=== PATIENT | male | born 1955 ===

== ENCOUNTER 2018-10-28 13:01 | Observation (INO) | payer OTHER, SELFPAY ==
[2018-10-28 13:01] VITALS: BMI 30.9
[2018-10-28] MEDS ORDERED: Sodium Chloride 0.9% 1,000 ML IV STA (14:12)
--- NOTE | 2018-10-28 14:20 | ED PDOC ---
HPI: Abdomen Time Seen by Provider: 10/28/18 13:47 Chief Complaint (Nursing): GI Problem Chief Complaint (Provider): Abdominal pain History Per: Patient History/Exam Limitations: no limitations Onset/Duration Of Symptoms: Days Outside of [place] travel?: No Location Of Pain/Discomfort: Diffuse, RUQ, RLQ Quality Of Discomfort: "Pain" Additional History Per: Patient Additional Complaint(s): 63yo male, comes to ER reporting abdominal pain, with associated nausea, vomiting and diarrhea. He denies any associated fever or chills. Patient states vomiting and diarrhea are both non-bloody. No medications taken prior. No additional complaints. PMD: Dr. Lanier Past Medical History Reviewed: Historical Data, Nursing Documentation, Vital Signs Vital Signs: Last Vital Signs Temp 100.3 F H 10/28/18 13:15 Pulse 130 H 10/28/18 13:15 Resp 18 10/28/18 13:15 BP 139/86 10/28/18 13:15 Pulse Ox 94 L 10/28/18 13:15 Primary Care Provider: Alexis Lanier - Medical History PMH: HTN - Surgical History Surgical History: No Surg Hx - Family History Family History: States: No Known Family Hx - Home Medications Home Medications: Ambulatory Orders Medication Instructions Recorded Aspirin 325 mg PO DAILY #0 tab 09/30/14 Clopidogrel [Plavix] 75 mg PO DAILY #0 tab 09/30/14 Glimepiride [amaRYL] 4 mg PO BID 10/28/18 Metoprolol Succinate XL [Toprol XL] 50 mg PO DAILY 10/28/18 - Allergies Allergies/Adverse Reactions: Allergies Allergy/AdvReac Type Severity Reaction Status Date / Time No Known Allergies Allergy Verified 10/28/18 13:15 Review of Systems ROS Statement: Except As Marked, All Systems Reviewed And Found Negative Constitutional: Negative for: Fever Cardiovascular: Negative for: Chest Pain Respiratory: Negative for: Shortness of Breath Gastrointestinal: Positive for: Nausea, Vomiting, Abdominal Pain, Diarrhea Physical Exam - Reviewed Nursing Documentation Reviewed: Yes Vital Signs Reviewed: Yes (febrile) - Physical Exam Appears: Positive for: Non-toxic, No Acute Distress Head Exam: Positive for: ATRAUMATIC, NORMAL INSPECTION, NORMOCEPHALIC Skin: Positive for: Normal Color Eye Exam: Positive for: Normal appearance Neck: Positive for: Supple Cardiovascular/Chest: Positive for: Tachycardia Respiratory: Positive for: Normal Breath Sounds. Negative for: Respiratory Distress Gastrointestinal/Abdominal: Positive for: Soft, Tenderness (right upper and lower quadrant tenderness). Negative for: Guarding Back: Positive for: Normal Inspection Extremity: Positive for: Normal ROM. Negative for: Pedal Edema Neurological/Psych: Positive for: Awake, Alert - Laboratory Results Result Diagrams: 10/29/18 05:45 10/29/18 14:35 - ECG O2 Sat by Pulse Oximetry: 94 (RA) Medical Decision Making Medical Decision Making: Impression: Abdominal pain w/ vomiting and diarrhea since yesterday Plan: -- Labs -- Urinalysis -- CT Abdomen/Pelvis -- EKg -- IV Fluids -- Zofran 4mg IV -- Morphine 2mg IV 1500 Labs reviewed, elevated creatinine, hypokalemia Patient given potassium chloride 20meq CT order changed to w/o contrast 1604 CT Abdomen/Pelvis FINDINGS: LOWER THORAX: Unremarkable. LIVER: Hepatomegaly. Liver measures 22.4 cm craniocaudal. The liver is diffusely diminished in attenuation consistent with fatty infiltration. Smooth contour. No mass. No biliary ductal dilatation. GALLBLADDER AND BILE DUCTS: Unremarkable. PANCREAS: Unremarkable. No gross lesion or ductal dilatation. SPLEEN: Unremarkable. ADRENALS: Unremarkable. No mass. KIDNEYS AND URETERS: Multiple bilateral rounded renal masses. In comparison to the prior examination of 03/30/2011, there has been interval increase in size of several of these masses. Although these likely represent cysts, correlation with nonemergent renal ultrasound examination is suggested. There is an exophytic mass in the upper pole of the right kidney with minimal peripheral calcification, measuring 36 Hounsfield units. This measures 1.8 cm in diameter, unchanged from prior examination. However, given the interval increase in attenuation and the appearance of peripheral calcification, again, correlation with renal ultrasound examination is suggested. No renal calculus. No hydronephrosis. VASCULATURE: Unremarkable. No aortic aneurysm. There is atherosclerotic calcification of the abdominal aorta. BOWEL: There is mural thickening of the cecum, ascending colon and hepatic flexure of the colon consistent with nonspecific colitis. There is no bowel obstruction. There are no other abnormal bowel loops identified. APPENDIX: Unremarkable. Normal appendix. PERITONEUM: Unremarkable. No free fluid. No free air. LYMPH NODES: Unremarkable. No enlarged lymph nodes. BLADDER: Nondistended REPRODUCTIVE: Normal prostate BONES: No acute fracture. OTHER FINDINGS: None. IMPRESSION: Nonspecific colitis involving the right colon, from cecum to hepatic flexure. Possible infectious or inflammatory etiology. No bowel obstruction. Bilateral low-density renal masses. Some of these have increased mildly in size compared to examination of 2011. Therefore, correlation with nonemergent renal u ltrasound examination is suggested. See above discussion. Hepatomegaly with diffuse fatty infiltration of the liver. IV Antibiotics started 1610 Patient meets sepsis criteria due to tachycardia, fever, and colitis. Discussed case with Dr. Bunch, who accepts patient for admission. --- ScribeAttestation: Documented byVirginia Benjamin, acting as a scribe for Traci Smart MD. Provider ScribeAttestation: All medical record entries made by the Scribe were at my direction and personally dictated by me. I have reviewed the chart and agree that the record accurately reflects my personal performance of the history, physical exam, medical decision making, and the department course for this patient. I have also personally directed, reviewed, and agree with the discharge instructions and disposition. Disposition - Clinical Impression Clinical Impression: Colitis, Sepsis - Patient ED Disposition Is Patient to be Admitted: Yes - Disposition Disposition Time: 16:00 Condition: STABLE - Pt Status Changed To: Hospital Disposition Of: Inpatient - Admit Certification Admit to Inpatient:: After my assessment, the patient will require hospitalization for at least two midnights. This is because of the severity of symptoms shown, intensity of services needed, and/or the medical risk in this patient being treated as an outpatient. - POA Present On Arrival: Poor Glycemic Control
[2018-10-28 14:42] LABS: BASO % 0.4 % (0.0-2.0); HEMOGLOBIN 18.1 g/dL (12.0-18.0); LYMPH # 0.8 K/uL (1.0-4.3); MEAN CELL VOLUME 85.2 fl (80.0-94.0); MEAN CORPUSCULAR HEMOGLOBIN 29.4 pg (27.0-31.0); MEAN CORPUSCULAR HGB CONC 34.5 g/dL (33.0-37.0); MEAN PLATELET VOLUME 9.2 fl (7.2-11.7); MONO # 0.6 K/uL (0.0-0.8); MONO % 7.2 % (0.0-10.0); NEUT % 83.4 % (50.0-75.0); NRBC % 0.4 % (0.0-0.0); PLATELET COUNT 212 K/uL (130-400); RBC 6.16 Mil/uL (4.40-5.90); RED CELL DISTRIBUTION WIDTH 13.8 % (11.5-14.5); WHITE BLOOD COUNT 8.4 K/uL (4.8-10.8)
[2018-10-28 14:45] LABS: VENOUS BLOOD GAS BASE EXCESS -0.7 mmol/L (0.0-2.0); VENOUS BLOOD GAS PCO2 48 mmHg (40-60); VENOUS BLOOD GAS PO2 23 mm/Hg (30-55); VENOUS BLOOD PH 7.34 (7.32-7.43)
[2018-10-28 14:50] LABS: INR 1.1; SQUAMOUS EPITHIAL 3 /hpf (0-5); URINE BACTERIA RARE (<OCC); URINE BILIRUBIN NEGATIVE (NEGATIVE); URINE BLOOD SMALL (NEGATIVE); URINE CLARITY CLOUDY (Clear); URINE COLOR AMBER (YELLOW); URINE GLUCOSE (UA) NEG (NEGATIVE); URINE LEUKOCYTE ESTERASE NEG Leu/uL (Negative); URINE PROTEIN >=500 mg/dL (NEGATIVE); URINE UROBILINOGEN 0.2-1.0 mg/dL (0.2-1.0)
[2018-10-28 14:52] LABS: ALBUMIN 4.7 g/dL (3.5-5.0); CALCIUM 9.3 mg/dL (8.4-10.2); PARTIAL THROMBOPLASTIN TIME 31.9 Seconds (25.6-37.1)
[2018-10-28] MEDS ORDERED: Potassium Chloride 20 mEq ER Tab PO STA (15:01)
[2018-10-28] MEDS ORDERED: Potassium Chloride 20 mEq ER Tab PO ONE (15:17)
[2018-10-28 15:25] LABS: BANDS 8 % (0-2); LYMPHOCYTE 7 % (20-50); MONOCYTE 10 % (0-10); NEUTROPHIL 74 % (42-75); PLATELET ESTIMATE NORMAL (NORMAL); REACTIVE LYMPHOCYTES 1 % (0-0); TOTAL CELLS COUNTED 100
--- NOTE | 2018-10-28 15:52 | CT ---
Date of service: 10/28/2018 PROCEDURE: CT Abdomen and Pelvis without intravenous contrast HISTORY: R sided pain COMPARISON: 03/30/2011 TECHNIQUE: Without contrast.. Contrast dose: 0 Radiation dose: Total exam DLP = 495.63 mGy-cm. This CT exam was performed using one or more of the following dose reduction techniques: Automated exposure control, adjustment of the mA and/or kV according to patient size, and/or use of iterative reconstruction technique. FINDINGS: LOWER THORAX: Unremarkable. LIVER: Hepatomegaly. Liver measures 22.4 cm craniocaudal. The liver is diffusely diminished in attenuation consistent with fatty infiltration. Smooth contour. No mass. No biliary ductal dilatation. GALLBLADDER AND BILE DUCTS: Unremarkable. PANCREAS: Unremarkable. No gross lesion or ductal dilatation. SPLEEN: Unremarkable. ADRENALS: Unremarkable. No mass. KIDNEYS AND URETERS: Multiple bilateral rounded renal masses. In comparison to the prior examination of 03/30/2011, there has been interval increase in size of several of these masses. Although these likely represent cysts, correlation with nonemergent renal ultrasound examination is suggested. There is an exophytic mass in the upper pole of the right kidney with minimal peripheral calcification, measuring 36 Hounsfield units. This measures 1.8 cm in diameter, unchanged from prior examination. However, given the interval increase in attenuation and the appearance of peripheral calcification, again, correlation with renal ultrasound examination is suggested. No renal calculus. No hydronephrosis. VASCULATURE: Unremarkable. No aortic aneurysm. There is atherosclerotic calcification of the abdominal aorta. BOWEL: There is mural thickening of the cecum, ascending colon and hepatic flexure of the colon consistent with nonspecific colitis. There is no bowel obstruction. There are no other abnormal bowel loops identified. APPENDIX: Unremarkable. Normal appendix. PERITONEUM: Unremarkable. No free fluid. No free air. LYMPH NODES: Unremarkable. No enlarged lymph nodes. BLADDER: Nondistended REPRODUCTIVE: Normal prostate BONES: No acute fracture. OTHER FINDINGS: None. IMPRESSION: Nonspecific colitis involving the right colon, from cecum to hepatic flexure. Possible infectious or inflammatory etiology. No bowel obstruction. Bilateral low-density renal masses. Some of these have increased mildly in size compared to examination of 2010. Therefore, correlation with nonemergent renal ultrasound examination is suggested. See above discussion. Hepatomegaly with diffuse fatty infiltration of the liver.
[2018-10-28] MEDS ORDERED: metroNIDAZOLE 500mg/100ml NS 100 ML IV STA (16:05)
[2018-10-28] MEDS ORDERED: cefTRIAXone (Rocephin) 1 gm Inj ONE (16:18)
[2018-10-28] MEDS ORDERED: Glucagon Recombinant 1 mg Inj IM PRN (16:58)
[2018-10-28] MEDS ORDERED: Dextrose 50% SYRINGE Inj (50 ml) IV PRN (16:58)
--- NOTE | 2018-10-28 16:59 | CP.PCM.HP ---
History of Present Illness - History of Present Illness History of Present Illness: 63 yo male with history of HTN, DM and HLD presented to ED for evaluation of right upper abdominal pain. Pain started yesterday associated with 8 episodes of Non-blood, non-bilious vomiting and watery diarrhea (without blood). He states the last time he ate was yesterday morning and it was tamales with unpasteurized cream. He states that he noticed this right upper quadrant pain last night while working and states it worsened which caused him to come to the E.R. He reports decreased PO intake since yesterday morning (has been having sips of water of which he throws up). Associated with subjective fever and chills. Denies chest pain, shortness of breath, dysuria, frequency or urgency. ROS negative except for stated above in HPI. PMD: Dr. Lanier Medical hx: HTN, HLD, previous history of gout, DM, reports previous stents placed in 2013 Surgical hx: denies Social history: lives alone. Has a brother here in the [place] . Works at a [employer]. Denies smoking history, illicit drug use and alcohol use. Medications: see med rec. Family hx: Aunt with DM. ED: vital signs: 100.3 F; HR: 130 ; RR: 18 RR: 18 ; BP: 139/86; O2 saturation: 94 % on room air -- CBC, BMP, U/A- negative, CT Abdomen/Pelvis, EKg, IV Fluids (1L bolus of NS), Zofran 4mg IV, Morphine 2mg IV Present on Admission - Present on Admission Any Indicators Present on Admission: No Past Patient History - Past Medical History & Family History Past Medical History?: Yes - Past Social History Smoking Status: Former Smoker - CARDIAC Hx Hypertension: Yes - MUSCULOSKELETAL/RHEUMATOLOGICAL Hx Falls: No - PSYCHIATRIC Hx Substance Use: No - SURGICAL HISTORY Hx Surgeries: No - ANESTHESIA Hx Anesthesia: No Meds Allergies/Adverse Reactions: Allergies Allergy/AdvReac Type Severity Reaction Status Date / Time No Known Allergies Allergy Verified 10/28/18 13:15 Physical Exam - Constitutional Appears: Non-toxic, No Acute Distress - Eye Exam Eye Exam: Normal appearance - ENT Exam ENT Exam: Mucous Membranes Dry - Respiratory Exam Respiratory Exam: Clear to Auscultation Bilateral, NORMAL BREATHING PATTERN. absent: Accessory Muscle Use, Chest Wall Tenderness, Decreased Breath Sounds, Prolonged Expiratory Phase, Rales, Rhonchi, Wheezes, Respiratory Distress, Stridor - Cardiovascular Exam Cardiovascular Exam: REGULAR RHYTHM, +S1, +S2 - GI/Abdominal Exam GI & Abdominal Exam: Hyperactive Bowel Sounds, Soft. absent: Distended, Firm, Guarding, Mass, Rebound, Rigid - Extremities Exam Extremities exam: Positive for: normal capillary refill, normal inspection, pedal pulses present (+2 dorsalis pedis and tibialis posterior bilaterally. ). Negative for: calf tenderness, joint swelling, pedal edema, tenderness - Neurological Exam Neurological exam: Alert, Oriented x3 - Psychiatric Exam Psychiatric exam: Normal Affect, Normal Mood - Skin Skin Exam: Dry, Intact, Normal Color, Warm Results - Vital Signs Recent Vital Signs: Last Vital Signs Temp 99.3 F 10/28/18 15:41 Pulse 130 H 10/28/18 13:15 Resp 18 10/28/18 13:15 BP 139/86 10/28/18 13:15 Pulse Ox 94 L 10/28/18 16:18 - Labs Result Diagrams: 10/28/18 14:31 10/28/18 14:31 Labs: Laboratory Results - last 24 hr 10/28/18 10/28/18 10/28/18 14:23 14:31 14:31 WBC 8.4 RBC 6.16 H Hgb 18.1 H D Hct 52.4 H MCV 85.2 D MCH 29.4 MCHC 34.5 RDW 13.8 Plt Count 212 MPV 9.2 Neut % (Auto) 83.4 H Lymph % (Auto) 9.0 L [place] % (Auto) 7.2 Eos % (Auto) 0.0 Baso % (Auto) 0.4 Neut # (Auto) 7.0 Lymph # (Auto) 0.8 L [place] # (Auto) 0.6 Eos # (Auto) 0.0 Baso # (Auto) 0.0 Neutrophils % (Manual) 74 Band Neutrophils % 8 H Lymphocytes % (Manual) 7 L Reactive Lymphs % 1 H Monocytes % (Manual) 10 Platelet Estimate Normal RBC Morphology Normal PT INR APTT pO2 23 L VBG pH 7.34 VBG pCO2 48 VBG HCO3 22.2 VBG Total CO2 27.4 VBG O2 Sat (Calc) 44.1 VBG Base Excess -0.7 L VBG Potassium 3.3 L Sodium 137.0 140 Chloride 98.0 98 Glucose 188 H Lactate 2.1 FiO2 21.0 Potassium 3.3 L Carbon Dioxide 21 L Anion Gap 24 H BUN 47 H Creatinine 1.9 H Est GFR ( Amer) 44 Est GFR (Non-Af Amer) 36 Random Glucose 184 H Calcium 9.3 Total Bilirubin 0.7 AST 31 ALT 39 Alkaline Phosphatase 97 Total Protein 9.3 H Albumin 4.7 Globulin 4.6 H Albumin/Globulin Ratio 1.0 Lipase 34 Venous Blood Potassium 3.3 L Urine Color Urine Clarity Urine pH Ur Specific [place] Urine Protein Urine Glucose (UA) Urine Ketones Urine Blood Urine Nitrate Urine Bilirubin Urine Urobilinogen Ur Leukocyte Esterase Urine RBC (Auto) Urine Microscopic WBC Ur Squamous Epith Cells Urine Bacteria 10/28/18 10/28/18 14:31 14:31 WBC RBC Hgb Hct MCV MCH MCHC RDW Plt Count MPV Neut % (Auto) Lymph % (Auto) [place] % (Auto) Eos % (Auto) Baso % (Auto) Neut # (Auto) Lymph # (Auto) [place] # (Auto) Eos # (Auto) Baso # (Auto) Neutrophils % (Manual) Band Neutrophils % Lymphocytes % (Manual) Reactive Lymphs % Monocytes % (Manual) Platelet Estimate RBC Morphology PT 13.0 INR 1.1 APTT 31.9 pO2 VBG pH VBG pCO2 VBG HCO3 VBG Total CO2 VBG O2 Sat (Calc) VBG Base Excess VBG Potassium Sodium Chloride Glucose Lactate FiO2 Potassium Carbon Dioxide Anion Gap BUN Creatinine Est GFR ( Amer) Est GFR (Non-Af Amer) Random Glucose Calcium Total Bilirubin AST ALT Alkaline Phosphatase Total Protein Albumin Globulin Albumin/Globulin Ratio Lipase Venous Blood Potassium Urine Color Reena Urine Clarity Cloudy Urine pH 5.0 Ur Specific [place] 1.024 Urine Protein >=500 Urine Glucose (UA) Neg Urine Ketones Negative Urine Blood Small Urine Nitrate Negative Urine Bilirubin Negative Urine Urobilinogen 0.2-1.0 Ur Leukocyte Esterase Neg Urine RBC (Auto) 6 H Urine Microscopic WBC 5 Ur Squamous Epith Cells 3 Urine Bacteria Rare Assessment & Plan (1) Colitis Status: Acute (2) Diabetes type 2, controlled Status: Acute (3) MASHA (acute kidney injury) Status: Acute - Assessment and Plan (Free Text) Assessment: 63 yo male with history of HTN, DM presented to E.D because of abdominal pain found to have colitis, admitted for management of colitis. Plan: 1. Colitis - Febrile -Tachycardia - No leukocytosis - Admit to telemetry - CT scan of abd and pelvis : nonspecific colitis involving right oclon from cecum to hepatic flexure. Possible infectious or inflammatory etiology. No bowel obstruction. BIlateral low- density renal masses- cal eof increased in size since 2010. Hepatomegaly with diffuse fatty infiltration of the liver. - Abx: Cirpo and flagyl - Tylenol for fever - IVF - NPO - Zofran for nausea - IVF 2. MASHA - BUN/Cr: 47/1.9 - IVF at this time 3. Hypokalemia - repleted with KCL PO 20mEQ - F/U Am labs 4. DM - hold metformin at this time given that the patient just had a CT scan and given his MASHA - Insulin sliding scale - Accuchecks - Hypoglycemia protocol 5. Hypertension - C/W home meds- Lisinopril and Metoprolol - monitor at this time 6. DVT prophylaxis - SCDS, ambulation and lovenox 40mg - Cr clearance of 43 mL
[2018-10-28] MEDS ORDERED: metroNIDAZOLE 500mg/100ml NS IVPB SCH (17:00)
[2018-10-28] MEDS ORDERED: metroNIDAZOLE 500mg/100ml NS 100 ML IVPB ONE (18:02)
[2018-10-28] MEDS: Sodium Chloride 0.9% 1,000 ML IV SCH (18:10)
[2018-10-28] MEDS: Insulin Regular 100 units/ml SC SCH (23:12)
[2018-10-28] MEDS: metroNIDAZOLE 500mg/100ml NS 100 ML IVPB SCH (23:14)
[2018-10-28] MEDS: Ciprofloxacin 400mg/200ml D5W 400 MG/200 ML BAG IVPB SCH (23:51)
[2018-10-29] MEDS: metroNIDAZOLE 500mg/100ml NS 100 ML IVPB SCH ×3 (01:27→16:07)
[2018-10-29] MEDS: Sodium Chloride 0.9% 1,000 ML IV SCH ×3 (05:58→16:08)
[2018-10-29 06:07] LABS: HEMOGLOBIN 15.9 g/dL (12.0-18.0); MEAN CORPUSCULAR HEMOGLOBIN 29.6 pg (27.0-31.0); MEAN CORPUSCULAR HGB CONC 34.4 g/dL (33.0-37.0); RBC 5.38 Mil/uL (4.40-5.90); RED CELL DISTRIBUTION WIDTH 13.8 % (11.5-14.5); WHITE BLOOD COUNT 7.1 K/uL (4.8-10.8)
[2018-10-29 06:21] LABS: ALB/GLOB RATIO 1.1 (1.0-2.1); ALBUMIN 4.2 g/dL (3.5-5.0); CALCIUM 8.5 mg/dL (8.4-10.2)
[2018-10-29] MEDS: Insulin Regular 100 units/ml SC SCH ×2 (06:40→12:58)
[2018-10-29] MEDS: Ciprofloxacin 400mg/200ml D5W 400 MG/200 ML BAG IVPB SCH (08:22)
[2018-10-29] MEDS ORDERED: Sodium Chloride 0.9% 1,000 ML IV SCH (08:45)
--- NOTE | 2018-10-29 08:46 | RAD ---
Date of service: 10/28/2018 PROCEDURE: CHEST RADIOGRAPH, 1 VIEW HISTORY: Cough , sputum production COMPARISON: None available. FINDINGS: LUNGS: Clear. PLEURA: No pneumothorax or pleural fluid seen. CARDIOVASCULAR: No aortic atherosclerotic calcification present. Normal. OSSEOUS STRUCTURES: No significant abnormalities. VISUALIZED UPPER ABDOMEN: Normal. OTHER FINDINGS: None. IMPRESSION: No active disease.
[2018-10-29] MEDS ORDERED: Metoprolol Succinate 50 mg XL Tab PO SCH (09:00)
[2018-10-29] MEDS ORDERED: Pantoprazole 40 mg EC Tab PO SCH (09:00)
[2018-10-29] MEDS ORDERED: Pneumococcal 23-Valent Vaccine IM ONE (09:00)
[2018-10-29] MEDS ORDERED: Enoxaparin 40 mg Syringe SC SCH (09:00)
[2018-10-29] MEDS: Potassium Chloride 20 mEq ER Tab PO SCH ×2 (10:35→16:07)
--- NOTE | 2018-10-29 10:36 | CARD ---
APPROVED REPORT Date of service: 10/28/2018 EKG Measurement Heart [id number] <Conclusion> Sinus tachycardia Possible Left atrial enlargement Inferior infarct, age undetermined Abnormal ECG
[2018-10-29 12:02] VITALS: TEMP 98.4
[2018-10-29 15:19] LABS: CALCIUM 8.7 mg/dL (8.4-10.2)
[2018-10-29] MEDS ORDERED: Potassium Chloride 20 mEq ER Tab PO ONE (15:55)
--- NOTE | 2018-10-29 15:59 | CP.PCM.DIS ---
Provider - Provider Date of Admission: 10/28/18 16:17 Attending physician: Cailin Bunch MD Time Spent in preparation of Discharge (in minutes): 20 Diagnosis - Discharge Diagnosis (1) Colitis Status: Resolved Hospital Course - Lab Results Lab Results: Micro Results 10/28/18 15:00 Blood-Venous Blood Culture - Preliminary NO GROWTH AFTER 24 HOURS 10/28/18 14:31 Blood-Venous Blood Culture - Preliminary NO GROWTH AFTER 24 HOURS Most Recent Lab Values WBC 7.1 K/uL (4.8-10.8) 10/29/18 05:45 RBC 5.38 Mil/uL (4.40-5.90) 10/29/18 05:45 Hgb 15.9 g/dL (12.0-18.0) D 10/29/18 05:45 Hct 46.3 % (35.0-51.0) 10/29/18 05:45 MCV 86.0 fl (80.0-94.0) 10/29/18 05:45 MCH 29.6 pg (27.0-31.0) 10/29/18 05:45 MCHC 34.4 g/dL (33.0-37.0) 10/29/18 05:45 RDW 13.8 % (11.5-14.5) 10/29/18 05:45 Plt Count 162 K/uL (130-400) 10/29/18 05:45 MPV 9.2 fl (7.2-11.7) 10/28/18 14:31 Neut % (Auto) 83.4 % (50.0-75.0) H 10/28/18 14:31 Lymph % (Auto) 9.0 % (20.0-40.0) L 10/28/18 14:31 [place] % (Auto) 7.2 % (0.0-10.0) 10/28/18 14:31 Eos % (Auto) 0.0 % (0.0-4.0) 10/28/18 14:31 Baso % (Auto) 0.4 % (0.0-2.0) 10/28/18 14:31 Neut # (Auto) 7.0 K/uL (1.8-7.0) 10/28/18 14:31 Lymph # (Auto) 0.8 K/uL (1.0-4.3) L 10/28/18 14:31 [place] # (Auto) 0.6 K/uL (0.0-0.8) 10/28/18 14:31 Eos # (Auto) 0.0 K/uL (0.0-0.7) 10/28/18 14:31 Baso # (Auto) 0.0 K/uL (0.0-0.2) 10/28/18 14:31 Neutrophils % (Manual) 74 % (42-75) 10/28/18 14:31 Band Neutrophils % 8 % (0-2) H 10/28/18 14:31 Lymphocytes % (Manual) 7 % (20-50) L 10/28/18 14:31 Reactive Lymphs % 1 % (0-0) H 10/28/18 14:31 Monocytes % (Manual) 10 % (0-10) 10/28/18 14:31 Platelet Estimate Normal (NORMAL) 10/28/18 14:31 RBC Morphology Normal (NORMAL) 10/28/18 14:31 PT 13.0 Seconds (9.8-13.1) 10/28/18 14:31 INR 1.1 10/28/18 14:31 APTT 31.9 Seconds (25.6-37.1) 10/28/18 14:31 pO2 23 mm/Hg (30-55) L 10/28/18 14:23 VBG pH 7.34 (7.32-7.43) 10/28/18 14:23 VBG pCO2 48 mmHg (40-60) 10/28/18 14:23 VBG HCO3 22.2 mmol/L 10/28/18 14:23 VBG Total CO2 27.4 mmol/L (22-28) 10/28/18 14:23 VBG O2 Sat (Calc) 44.1 % (40-65) 10/28/18 14:23 VBG Base Excess -0.7 mmol/L (0.0-2.0) L 10/28/18 14:23 VBG Potassium 3.3 mmol/L (3.6-5.2) L 10/28/18 14:23 Sodium 137.0 mmol/L (132-148) 10/28/18 14:23 Chloride 98.0 mmol/L (98-107) 10/28/18 14:23 Glucose 188 mg/dL (75-110) H 10/28/18 14:23 Lactate 2.1 mmol/L (0.7-2.1) 10/28/18 14:23 FiO2 21.0 % 10/28/18 14:23 Sodium 136 mmol/l (132-148) 10/29/18 14:35 Potassium 3.1 MMOL/L (3.6-5.0) L 10/29/18 14:35 Chloride 99 mmol/L (98-107) 10/29/18 14:35 Carbon Dioxide 23 mmol/L (22-30) 10/29/18 14:35 Anion Gap 17 (10-20) 10/29/18 14:35 BUN 53 mg/dl (9-20) H 10/29/18 14:35 Creatinine 1.8 mg/dl (0.8-1.5) H 10/29/18 14:35 Est GFR ( Amer) 47 10/29/18 14:35 Est GFR (Non-Af Amer) 39 10/29/18 14:35 POC Glucose (mg/dL) 184 mg/dL (65-110) H 10/29/18 11:28 Random Glucose 137 mg/dL (75-110) H 10/29/18 14:35 Calcium 8.7 mg/dL (8.4-10.2) 10/29/18 14:35 Total Bilirubin 0.5 mg/dl (0.2-1.3) 10/29/18 05:45 AST 31 U/L (17-59) 10/29/18 05:45 ALT 32 U/L (21-72) 10/29/18 05:45 Alkaline Phosphatase 78 U/L (38-126) 10/29/18 05:45 Total Protein 7.9 G/DL (6.3-8.2) 10/29/18 05:45 Albumin 4.2 g/dL (3.5-5.0) 10/29/18 05:45 Globulin 3.7 gm/dL (2.2-3.9) 10/29/18 05:45 Albumin/Globulin Ratio 1.1 (1.0-2.1) 10/29/18 05:45 Triglycerides 217 mg/DL (0-149) H D 10/29/18 05:45 Cholesterol 162 mg/dL (0-199) 10/29/18 05:45 LDL Cholesterol Direct 95 mg/dL (0-129) 10/29/18 05:45 HDL Cholesterol 23 MG/DL (30-70) L 10/29/18 05:45 Lipase 34 U/L (23-300) 10/28/18 14:31 Venous Blood Potassium 3.3 mmol/L (3.6-5.2) L 10/28/18 14:23 Urine Color Reena (YELLOW) 10/28/18 14:31 Urine Clarity Cloudy (Clear) 10/28/18 14:31 Urine pH 5.0 (5.0-8.0) 10/28/18 14:31 Ur Specific [place] 1.024 (1.003-1.030) 10/28/18 14:31 Urine Protein >=500 mg/dL (NEGATIVE) 10/28/18 14:31 Urine Glucose (UA) Neg mg/dL (NEGATIVE) 10/28/18 14:31 Urine Ketones Negative mg/dL (NEGATIVE) 10/28/18 14:31 Urine Blood Small (NEGATIVE) 10/28/18 14:31 Urine Nitrate Negative (NEGATIVE) 10/28/18 14:31 Urine Bilirubin Negative (NEGATIVE) 10/28/18 14:31 Urine Urobilinogen 0.2-1.0 mg/dL (0.2-1.0) 10/28/18 14:31 Ur Leukocyte Esterase Neg [place]/uL (Negative) 10/28/18 14:31 Urine RBC (Auto) 6 /hpf (0-3) H 10/28/18 14:31 Urine Microscopic WBC 5 /hpf (0-5) 10/28/18 14:31 Ur Squamous Epith Cells 3 /hpf (0-5) 10/28/18 14:31 Urine Bacteria Rare (<OCC) 10/28/18 14:31 - Hospital Course Hospital Course: 63 year old pt admitted for colitis after eating unpasturized milk. On admission he was Febrile Tmax 102, tachycardic with MASHA, and colitis. 8 loose bowel movements overnight but none today. Potassium replaced, MASHA improved after hydration. No further abdominal pain throughout day, pt cleared for discharge to home. Recommend pt maintaines adequate hydration and follow up with PMD within 1 week. Discharge Exam - Head Exam Head Exam: ATRAUMATIC, NORMAL INSPECTION, NORMOCEPHALIC - Eye Exam Eye Exam: Normal appearance - Respiratory Exam Respiratory Exam: NORMAL BREATHING PATTERN. absent: Respiratory Distress - Cardiovascular Exam Cardiovascular Exam: REGULAR RHYTHM - GI/Abdominal Exam GI & Abdominal Exam: Soft. absent: Tenderness Additional comments: no loose bowel movements since overnight - Neurological Exam Neurological exam: Alert, Oriented x3 - Psychiatric Exam Psychiatric exam: Normal Affect, Normal Mood - Skin Skin Exam: Normal Color Discharge Plan - Follow Up Plan Condition: GOOD Disposition: HOME/ ROUTINE Instructions: Colitis, Diabetes Type 2 (DC) Additional Instructions: F/u PMD within 1 week. Referrals: [facility] [place] [Outside]
[2018-10-29 16:19] VITALS: BP 119/72; PULSE 72; RESP 16
[2018-11-03 08:19] VITALS: O2SAT 94
== END 2018-10-29 17:00 | disposition home or self-care (01) ==
LOC: H.ER 13:01 → H.ERHOLD 16:17 → INTOOBSV 16:17 → H.TEL 22:26
PROVIDERS: ADMIT Hospitalist; ATTEND Hospitalist
DX: K52.9 Noninfective gastroenteritis and colitis, unspecified (principal); E87.6 Hypokalemia; N17.9 Acute kidney failure, unspecified; E86.0 Dehydration; I10 Essential (primary) hypertension; E11.9 Type 2 diabetes mellitus without complications; E78.5 Hyperlipidemia, unspecified; M10.9 Gout, unspecified; Z79.02 Long term (current) use of antithrombotics/antiplatelets; Z79.82 Long term (current) use of aspirin; Z87.891 Personal history of nicotine dependence
CPT/HCPCS: 36415; 71045; 74176; 80053; 80061; 81003; 82803; 82948; 83690; 85025; 85027; 85610; 85730; 87040; 93005; 96361; 96365; 96366; 96367; 96375; 96376; 99284; G0378; J0696; J0744; J2270; J2405; J7030